=== PATIENT | male | born 1960 | race Two or more races ===

== ENCOUNTER 2021-10-11 16:24 | Emergency (ER) | payer OTHER ==
[2021-10-11] MEDS ORDERED: FLUORESCEIN SODIUM 1 MG STRIP OS ONE (18:45)
[2021-10-11] MEDS ORDERED: CIPROFLOXACIN HCL 0.3% 2.5 ML OPHTHALMIC SOLUTION OS ONE (19:30)
[2021-10-11 20:02] VITALS: BP 147/80
== END 2021-10-11 20:04 | disposition home or self-care (01) ==
LOC: EMS 16:26
DX: S05.02XA Injury of conjunctiva and corneal abrasion without foreign body, left eye, initial encounter (principal); X58.XXXA Exposure to other specified factors, initial encounter; Y93.89 Activity, other specified; Y92.89 Other specified places as the place of occurrence of the external cause; Y99.8 Other external cause status
CPT/HCPCS: 99283